=== PATIENT | female | born 1995 | race Caucasian/White ===

== ENCOUNTER → 2020-08-27 13:39 | Outpatient (CLI) | payer OTHER, SELFPAY ==
--- NOTE | ~2020-08-27 | US_ITS ---
EXAMINATION: US OB <= 14 weeks fetus DATE: 08/27/2020 14:01 INDICATION: First trimester dating TECHNIQUE: Real-time pelvic transabdominal and transvaginal ultrasound was performed. COMPARISON: None. FINDINGS: The uterus measures 15.1 x 6.2 x 9.9 cm. There is an intrauterine gestational sac. There i s a 2.1 x 1.3 x 2.3 cm hypoechoic area inferior to the gestational sac and a 3.7 x 2.0 x 1.2 cm hypoe choic area superior to the gestational sac. A yolk sac is identified. heart motion is identifie d measuring 167 beats per minute (bpm) by M-mode Doppler. The crown rump length measures 3.6 cm , which correlates with an estimated gestational age of 10 weeks and 3 day(s) (+/-) 7 day(s). The right ovary measures 3.7 x 1.2 x 1.7 cm. The left ovary measures 3.2 x 1.4 x 2.6 cm. There is no free fluid in the pelvis. IMPRESSION: 1. Live intrauterine with an estimated gestational age of 10 weeks and 3 day(s) (+/-) 7 day (s) and an estimated delivery date of 03/22/2021. 2. Two small subchorionic hematomas. Reviewed, dictated and finalized at location A. F PILOT IMPRESSION: 1. Live intrauterine with an estimated gestational age of 10 weeks an d 3 day(s) (+/-) 7 day(s) and an estimated delivery date of 03/22/2021. 2. Two small subchorionic hematomas.
== END ==
DX: O46.91 Antepartum hemorrhage, unspecified, first trimester (principal); Z3A.10 10 weeks gestation of pregnancy
CPT/HCPCS: 76801

== ENCOUNTER 2020-09-24 14:51 | Outpatient (RCR) | payer OTHER, SELFPAY ==
[2020-09-24 15:42] LABS: Basophils Percent Auto 0.3 % (0.2-1.2); Eosinophils Absolute Auto 0.2 K/mm3 (0-0.3); Hematocrit 38.5 % (37.0-47.0); Hemoglobin 12.9 g/dL (12.0-15.0); Immature Granulocyte Absolute 0.03 K/mm3 (0.00-0.031); Immature Granulocyte Percent A 0.5 % (0-0.5); Lymphocytes Absolute Auto 1.53 K/mm3 (0.9-3.2); Lymphocytes Percent Auto 25.7 % (18.3-44.2); Mean Corpuscular HGB Conc 33.5 g/dl (32-36); Mean Corpuscular Hemoglobin 30.8 pg (26-34); Mean Corpuscular Volume 91.9 fl (80-100); Mean Platelet Volume 10.2 fl (7.4-10.4); Monocytes Absolute Auto 0.3 K/mm3 (0.1-0.6); Monocytes Percent Auto 5.7 % (2.6-8.5); Neutrophils Absolute Auto 3.9 K/mm3 (1.3-6.7); Neutrophils Percent Auto 64.8 % (45.5-73.1); Platelet Count Result 231 k/mm3 (150-375); Red Blood Count 4.19 M/mm3 (4.2-5.4); Red Cell Distribution Width 13.2 % (11.5-14.5)
[2020-09-24 15:46] LABS: Add Urine Microscopic? YES; Appearance Urine Clear (Clear); Bilirubin Urine Negative (Negative); Blood Urine Negative (Negative); Color Urine Yellow (Yellow); Glucose Urine UA Negative (Negative); Ketones Urine 1+ mg/dL (Negative); Leukocyte Esterase Ur Negative LEU/UL (NEGATIVE); Nitrate Urine Negative (Negative); Protein Urine Negative (Negative); RBC Urine 0-2 /hpf (0-2); Specific Grav Ur 1.008 (1.001-1.035); Squamous Epithelial Cell Urine Moderate /hpf (Few); Urobilinogen Urine Negative mg/dL (<2.0); WBC Urine 0-3 /hpf (0-3)
[2020-09-24 15:50] LABS: Hemoglobin A1C 4.7 % (<5.7)
[2020-09-24 16:01] LABS: Glucose 73 mg/dL (65-105)
[2020-09-24 16:41] LABS: HIV 1/2 Ab P24 Ag Result Negative (Negative)
[2020-09-24 17:53] LABS: Hepatitis B Surface Antigen Negative (Negative)
[2020-09-25 07:05] LABS: Rapid Plasma Reagin Non-Reactive (NonReactive)
== END 2020-12-23 23:59 | disposition home or self-care (01) ==
LOC: ANHLAB 14:51
DX: Z34.81 Encounter for supervision of other normal pregnancy, first trimester (principal); Z11.4 Encounter for screening for human immunodeficiency virus [HIV]
CPT/HCPCS: 36415; 81001; 82947; 83036; 85025; 85461; 86592; 86703; 87086; 87088; 87340; 87491; 87591; G0432

== ENCOUNTER → 2020-10-22 14:49 | Outpatient (CLI) | payer OTHER, SELFPAY ==
--- NOTE | ~2020-10-22 | US_ITS ---
EXAMINATION: US OB >= 14 weeks Fetus DATE: 10/22/2020 15:25 INDICATION: survey TECHNIQUE: Multiple obstetric sonographic images performed. FINDINGS: Comparison to 08/27/2020 There is a single living fetus in variable presentation. The placenta is anteriorly without placenta previa, 3.7 cm to the cervix. There are hypoechoic structures adjacent to the margin of the placenta consistent with subchorionic hemorrhages, largest measuring 4.3 x 1.6 cm greatest dimension. Amnioti c fluid volume is normal. PALOMA measures cm. cardiac activity and movement is noted with a heart rate of 150 to beats per minute . The following anatomy was identified as normal: 3 vessel cord cord insertion kidneys urinary bladder stomach spine diaphragm ventricles cisterna magna cerebellum 4 chamber heart and ventricular outflow tracts are not well visualized. The following biometric data were obtained: BPD: 43mm corresponds to gestational age 18 weeks 6 days. Head circumference: 160 mm corresponds to gestational age 18 weeks 6 days. Abdominal circumference: 128 mm corresponds to gestational age 18 weeks 3 days. Femur length: 28 mm corresponds to gestational age 18 weeks 3 days. Head circumference to abdominal circumference ratio: 1.25 (normal range for expected gestational age is 1.09-1.26). Estimated weight: 240 grams +/- 36 grams using Hadlock method. IMPRESSION: 1: Single living intrauterine with an estimated gestational age of 18weeks 3days by initial ultrasound measurements, with an EDC of 03/22/2021 in variable presentation. 2. survey limited for evaluation of four-chamber heart and ventricular outflow tracts.. 3: Hypoechoic structures adjacent to the placenta, likely areas of subchorionic hemorrhage. Reviewed, dictated and finalized at location A. E OIL DRIVER IMPRESSION: 1: Single living intrauterine with an estimated gestational age of 18 weeks 3days by initial ultrasound measurements, with an EDC of 03/22/2021 in va riable presentation. 2. survey limited for evaluation of four-chamber heart and ventricular o utflow tracts.. 3: Hypoechoic structures adjacent to the placenta, likely areas of subchorionic hemorrhage.
== END ==
DX: Z34.82 Encounter for supervision of other normal pregnancy, second trimester (principal); Z3A.18 18 weeks gestation of pregnancy
CPT/HCPCS: 76805

== ENCOUNTER 2020-12-27 14:18 | Outpatient (CLI) | payer OTHER, SELFPAY ==
[2020-12-27 14:56] LABS: Hemoglobin 11.8 g/dL (12.0-15.0); Mean Corpuscular HGB Conc 33.7 g/dl (32-36); Mean Corpuscular Hemoglobin 30.4 pg (26-34); Mean Corpuscular Volume 90.2 fl (80-100); Mean Platelet Volume 9.6 fl (7.4-10.4); Platelet Count Result 230 k/mm3 (150-375); Red Blood Count 3.88 M/mm3 (4.2-5.4); Red Cell Distribution Width 12.6 % (11.5-14.5); White Blood Count 7.2 K/mm3 (4.5-10.0)
[2020-12-27 15:11] LABS: Hemoglobin A1C 4.7 % (<5.7)
[2020-12-27 15:53] LABS: HIV 1/2 Ab P24 Ag Result Negative (Negative)
[2020-12-27 16:19] LABS: Hepatitis B Surface Antigen Negative (Negative)
[2020-12-30 07:44] LABS: Rapid Plasma Reagin Non-Reactive (NonReactive)
== END 2020-12-27 14:19 | disposition home or self-care (01) ==
LOC: ANHLAB 14:21
DX: Z36.89 Encounter for other specified antenatal screening (principal)
CPT/HCPCS: 36415; 83036; 85027; 86592; 86703; 87340; G0432

== ENCOUNTER → 2021-01-06 11:17 | Outpatient (CLI) | payer OTHER, SELFPAY ==
--- NOTE | ~2021-01-06 | US_ITS ---
US OB limited 01/06/2021 11:44 Indication: Limited survey on prior study. Evaluate heart. Procedure: Real-time Limited obstetrical ultrasound Comparison: Ultrasound dated 10/22/2020 Findings: There is a single living intrauterine in vertex presentation. heart rate is 151 BPM. Placenta is anterior without previa. Amniotic fluid is subjectively normal. Four-chamber he art and ventricular outflow tracts are normal. Impression: 1: Single living intrauterine in vertex presentation. 2: Unremarkable limited survey of the heart and ventricular outflow tracts. Reviewed, dictated and finalized at location A. Impression: 1: Single living intrauterine in vertex presentation. 2: Unremarkable limited survey of the heart and ventricular outflow tracts.
== END ==
DX: O28.3 Abnormal ultrasonic finding on antenatal screening of mother (principal); Z3A.00 Weeks of gestation of pregnancy not specified
CPT/HCPCS: 76815